=== PATIENT | male | born 1960 ===

== ENCOUNTER 2017-05-28 06:51 | Day surgery (SDC) | payer OTHER ==
[2017-05-21 08:08] VITALS: BMI 23.6
[2017-05-28] MEDS ORDERED: Propofol 10 mg/ml Inj (20 ML) ONE (09:08)
[2017-05-28] MEDS ORDERED: Lidocaine 1% Inj (20ml) ONE (09:08)
[2017-05-28] MEDS ORDERED: Sodium Chloride 0.9% 1,000 ML IV SCH (09:45)
[2017-05-28 10:30] VITALS: BP 109/73; PULSE 50; RESP 16; TEMP 97.6; O2SAT 99
== END 2017-05-28 10:45 | disposition home or self-care (01) ==
LOC: ENDO 06:51
PROVIDERS: ATTEND Internal Medicine
DX: K22.70 Barrett's esophagus without dysplasia (principal); K21.0 Gastro-esophageal reflux disease with esophagitis; K29.70 Gastritis, unspecified, without bleeding; R14.0 Abdominal distension (gaseous)
CPT/HCPCS: 43239; 88305; 88312; 88342; J2704; J3010; J7040 ×2